=== PATIENT | female | born 1935 | race Caucasian/White ===

== ENCOUNTER → 2016-02-25 | Outpatient (CLI) | payer MEDICARE ==
[~2016-02-25] MED LIST: AMIO200T PO; ATOR80TA PO; COUM3TAB PO; COUM6TAB PO; DILA100C PO; LANS15CA PO; LEVE500 PO; LEXA10TA PO; LISI10TA PO; MIRTA15 PO; XANA0.5T PO
[2016-02-25 16:46] LABS: HEMATOCRIT 39.4 % (35.0-46.0); MEAN CELL VOLUME 86.5 FL (80.0-100.0); MEAN CORPUSCULAR HEMOGLOBIN 28.7 PG (27.0-34.0); MEAN CORPUSCULAR HGB CONC 33.2 % (32.0-36.0); PLATELET COUNT 228 TH/MM3 (150-450); RED BLOOD COUNT 4.56 MIL/MM3 (4.00-5.30); RED CELL DISTRIBUTION WIDTH 13.9 % (11.6-17.2); REVIEW FLAG FINAL; WHITE BLOOD COUNT 7.2 TH/MM3 (4.0-11.0)
[2016-02-25 16:47] LABS: ALT (GPT) 58 U/L (10-53); ANION GAP 7 MEQ/L (5-15); AST (GOT) 43 U/L (15-37); BICARBONATE 29.8 MEQ/L (21.0-32.0); BLOOD UREA NITROGEN 24 MG/DL (7-18); CHLORIDE 104 MEQ/L (98-107); GLOMERULAR FILTRATION RATE 62 ML/MIN (>89); GLUCOSE,FASTING 67 MG/DL (74-99); POTASSIUM 3.9 MEQ/L (3.5-5.1); SODIUM (NA) 141 MEQ/L (136-145)
[2016-02-25 16:55] LABS: ALKALINE PHOSPHATASE 132 U/L (45-117); HDL CHOLESTEROL 71.1 MG/DL (40.0-60.0); LDL CHOLESTEROL 90 MG/DL (0-99); LDL CHOLESTEROL DIRECT 98 MG/DL (0-99); TOTAL BILIRUBIN ADULT 0.2 MG/DL (0.2-1.0)
== END ==
LOC: PLAB 12:30
PROVIDERS: ATTEND Internal Medicine
DX: I10 Essential (primary) hypertension (principal); E78.5 Hyperlipidemia, unspecified
CPT/HCPCS: 36415; 80053; 80061; 83721; 85027

== ENCOUNTER → 2016-03-26 | Outpatient (CLI) | payer MEDICARE | LOC: PLAB 12:24 | PROVIDERS: ATTEND Psychiatry & Neurology Neurology | DX: G40.901 Epilepsy, unspecified, not intractable, with status epilepticus (principal) | CPT/HCPCS: 36415; 80177; 80185 ==

== ENCOUNTER → 2016-05-26 | Outpatient (CLI) | payer MEDICARE ==
[2016-05-26 17:19] LABS: HEMATOCRIT 37.5 % (35.0-46.0); MEAN CELL VOLUME 86.7 FL (80.0-100.0); MEAN CORPUSCULAR HEMOGLOBIN 29.9 PG (27.0-34.0); MEAN CORPUSCULAR HGB CONC 34.4 % (32.0-36.0); PLATELET COUNT 197 TH/MM3 (150-450); RED BLOOD COUNT 4.32 MIL/MM3 (4.00-5.30); RED CELL DISTRIBUTION WIDTH 13.9 % (11.6-17.2); REVIEW FLAG FINAL; WHITE BLOOD COUNT 7.8 TH/MM3 (4.0-11.0)
[2016-05-26 17:27] LABS: ANION GAP 5 MEQ/L (5-15); AST (GOT) 39 U/L (15-37); BICARBONATE 27.6 MEQ/L (21.0-32.0); BLOOD UREA NITROGEN 24 MG/DL (7-18); CHLORIDE 109 MEQ/L (98-107); GLOMERULAR FILTRATION RATE 59 ML/MIN (>89); GLUCOSE,FASTING 96 MG/DL (74-99); POTASSIUM 4.1 MEQ/L (3.5-5.1); SODIUM (NA) 142 MEQ/L (136-145)
[2016-05-26 17:29] LABS: ALKALINE PHOSPHATASE 130 U/L (45-117); ALT (GPT) 56 U/L (10-53); HDL CHOLESTEROL 60.8 MG/DL (40.0-60.0); LDL CHOLESTEROL DIRECT 83 MG/DL (0-99); TOTAL BILIRUBIN ADULT 0.2 MG/DL (0.2-1.0)
[2016-05-26 17:39] LABS: LDL CHOLESTEROL 69 MG/DL (0-99)
== END ==
LOC: PLAB 15:17
PROVIDERS: ATTEND Psychiatry & Neurology Neurology
DX: G40.901 Epilepsy, unspecified, not intractable, with status epilepticus (principal); I10 Essential (primary) hypertension; E78.5 Hyperlipidemia, unspecified
CPT/HCPCS: 36415; 80053; 80061; 80177; 80185; 83721; 85027

== ENCOUNTER → 2016-08-27 | Outpatient (CLI) | payer MEDICARE | LOC: PLAB 11:18 | PROVIDERS: ATTEND Psychiatry & Neurology Neurology | DX: G40.901 Epilepsy, unspecified, not intractable, with status epilepticus (principal) | CPT/HCPCS: 36415; 80177; 80185 ==

== ENCOUNTER 2016-10-26 11:36 | Emergency (ER) | payer MEDICARE ==
[~2016-10-26] VITALS: Ht 167.6 cm; Wt 56.6 kg
[2016-10-26 11:41] VITALS: BP 149/63; PULSE 75; RESP 15; TEMP 97.9; O2SAT 94
[2016-10-26] MEDS ORDERED: ACETAMINOPHEN 500 MG CPLT PO ONE (12:00)
[2016-10-26] MEDS ORDERED: LIDOCAINE HCL 1% 50 ML VIAL INFIL ONE (12:00)
[2016-10-26] MEDS ORDERED: TETANUS/DIPHTHERIA TOXOID ADULT 0.5 ML VIAL IM ONE (12:00)
--- NOTE | 2016-10-26 12:13 | PD ---
HPI Chief Complaint: Fall Time Seen by Provider: 11:45 Travel History International Travel<30 days: No Contact w/Intl Traveler<30days: No Traveled to known affect area: No History of Present Illness HPI 81yo F with PMH of CVA with left sided weakness presents to the ED with c/o laceration in left forehead after fall today at about 5:30am. Pt was in her wheelchair and tried to get up but her foot got tangled in the wheelchair and she fell and hit the left side of her head on the edge of the bathtub. Pt also hit her left knee. Denies any LOC, dizziness, chest pain, sob, n/v, abdominal pain, new weakness or numbness, visual changes. Pt was able to crawl back up onto the wheelchair. She is on coumadin for her CVA. PFSH Past Medical History Arthritis: No Asthma: No Anxiety: Yes Depression: Yes Heart Rhythm Problems: Yes (SVT) Cancer: No Cardiovascular Problems: Yes High Cholesterol: Yes Chemotherapy: No Chest Pain: No Congestive Heart Failure: No COPD: No Cerebrovascular Accident: Yes (X 2 w left sided deficit) Diabetes: No Diminished Hearing: No Endocrine: No GERD: No Genitourinary: No Hiatal Hernia: No Hypertension: Yes Musculoskeletal: No Neurologic: Yes Psychiatric: No Reproductive: No Respiratory: No Migraines: No Radiation Therapy: No Seizures: Yes Sickle Cell Disease: No Sleep Apnea: No Thyroid Disease: No Ulcer: No Past Surgical History AICD: No Appendectomy: Yes Arteriovenous Shunt: No Cardiac Surgery: No Ear Surgery: No Endocrine Surgery: No Eye Surgery: No Genitourinary Surgery: No Gynecologic Surgery: No Insulin Pump: No Joint Replacement: No Oral Surgery: Yes Pacemaker: No Thoracic Surgery: No Tonsillectomy: Yes Social History Alcohol Use: No Tobacco Use: No Substance Use: No Allergies-Medications (Allergen,Severity, Reaction): Coded Allergies: *MDRO Multi-Drug Resistant Organism (Verified Allergy, Unknown, 10/26/16) +c-dif Reported Meds & Prescriptions Reported Meds & Active Scripts Active Reported Warfarin 3 Mg Tab 3 Mg PO 3X WEEK Warfarin 6 Mg Tab 6 Mg PO 4 DAYS WEEK Keppra (Levetiracetam) 500 Mg Tab 500 Mg PO BID Dilantin (Phenytoin Extended) 100 Mg Cap 100 Mg PO BID Amiodarone (Amiodarone HCl) 100 Mg Tab 100 Mg PO DAILY Escitalopram (Escitalopram Oxalate) 20 Mg Tab 20 Mg PO DAILY Lisinopril-Hctz 10-12.5 Mg Tab 0.5 Tab PO DAILY Pantoprazole (Pantoprazole Sodium) 40 Mg Tab 40 Mg PO DAILY Review of Systems Except as stated in HPI: all other systems reviewed are Neg Physical Exam Narrative GENERAL: 81yo F not in distress. SKIN: Focused skin assessment warm/dry. HEAD: +1.5cm laceration left forehead. Periorbital ecchymoses in left eye. EYES: Pupils equal and round at 3mm bilaterally. EOMI. No injection or drainage. ENT: No hemotympanum. No septal hematoma. NECK: No midline ttp cervical spine. FROM in cervical spine. CARDIOVASCULAR: Regular rate and rhythm. No murmur appreciated. RESPIRATORY: No accessory muscle use. Clear to auscultation. Breath sounds equal bilaterally. GASTROINTESTINAL: Abdomen soft, non-tender, nondistended. No rebound tenderness or guarding. MUSCULOSKELETAL: Left knee: +Abrasion and mild ecchymoses. FROM left knee. Sensation intact. Distal pulses intact. NEUROLOGICAL: Awake and alert. Left facial droop, not new. Muscle strength 4/ 5 in LLE that is not new. Normal speech. PSYCHIATRIC: Appropriate mood and affect; insight and judgment normal. Data Data Last Documented VS Vital Signs Date Time Temp Pulse Resp B/P (MAP) Pulse Ox O2 Delivery O2 Flow Rate FiO2 10/26/16 12:43 72 18 119/66 (83) 95 Room Air 10/26/16 11:41 97.9 Orders Orders Complete Blood Count With Diff (10/26/16 11:51) Basic Metabolic Panel (Bmp) (10/26/16 11:51) Prothrombin Time / Inr (Pt) (10/26/16 11:51) Act Partial Throm Time (Ptt) (10/26/16 11:51) Ct Brain W/O Iv Contrast(Rout) (10/26/16 ) Tetanus/Diphtheria Tox Adult (Tetanus/Di (10/26/16 12:00) Lidocaine 1% Inj (50 Ml) (Xylocaine 1% I (10/26/16 12:00) Acetaminophen (Tylenol) (10/26/16 12:00) Ct Facial Bones W/O Iv Cont (10/26/16 ) Labs Laboratory Tests Test 10/26/16 12:30 White Blood Count 8.1 TH/MM3 Red Blood Count 4.64 MIL/MM3 Hemoglobin 13.9 GM/DL Hematocrit 41.1 % Mean Corpuscular Volume 88.6 FL Mean Corpuscular Hemoglobin 29.9 PG Mean Corpuscular Hemoglobin Concent 33.7 % Red Cell Distribution Width 12.6 % Platelet Count 212 TH/MM3 Mean Platelet Volume 8.2 FL Neutrophils (%) (Auto) 72.0 % Lymphocytes (%) (Auto) 12.9 % Monocytes (%) (Auto) 13.5 % Eosinophils (%) (Auto) 1.1 % Basophils (%) (Auto) 0.5 % Neutrophils # (Auto) 5.9 TH/MM3 Lymphocytes # (Auto) 1.0 TH/MM3 Monocytes # (Auto) 1.1 TH/MM3 Eosinophils # (Auto) 0.1 TH/MM3 Basophils # (Auto) 0.0 TH/MM3 CBC Comment DIFF FINAL Differential Comment Prothrombin Time 27.7 SEC Prothromb Time International Ratio 2.4 RATIO Activated Partial Thromboplast Time 37.3 SEC Blood Urea Nitrogen 18 MG/DL Creatinine 0.86 MG/DL Random Glucose 108 MG/DL Calcium Level 9.0 MG/DL Sodium Level 140 MEQ/L Potassium Level 3.8 MEQ/L Chloride Level 104 MEQ/L Carbon Dioxide Level 31.0 MEQ/L Anion Gap 5 MEQ/L Estimat Glomerular Filtration Rate 63 ML/MIN MDM Medical Decision Making Medical Screen Exam Complete: Yes Emergency Medical Condition: Yes Interpretation(s) Laboratory Tests Test 10/26/16 12:30 White Blood Count 8.1 TH/MM3 (4.0-11.0) Red Blood Count 4.64 MIL/MM3 (4.00-5.30) Hemoglobin 13.9 GM/DL (11.6-15.3) Hematocrit 41.1 % (35.0-46.0) Mean Corpuscular Volume 88.6 FL (80.0-100.0) Mean Corpuscular Hemoglobin 29.9 PG (27.0-34.0) Mean Corpuscular Hemoglobin Concent 33.7 % (32.0-36.0) Red Cell Distribution Width 12.6 % (11.6-17.2) Platelet Count 212 TH/MM3 (150-450) Mean Platelet Volume 8.2 FL (7.0-11.0) Neutrophils (%) (Auto) 72.0 % (16.0-70.0) Lymphocytes (%) (Auto) 12.9 % (9.0-44.0) Monocytes (%) (Auto) 13.5 % (0.0-8.0) Eosinophils (%) (Auto) 1.1 % (0.0-4.0) Basophils (%) (Auto) 0.5 % (0.0-2.0) Neutrophils # (Auto) 5.9 TH/MM3 (1.8-7.7) Lymphocytes # (Auto) 1.0 TH/MM3 (1.0-4.8) Monocytes # (Auto) 1.1 TH/MM3 (0-0.9) Eosinophils # (Auto) 0.1 TH/MM3 (0-0.4) Basophils # (Auto) 0.0 TH/MM3 (0-0.2) CBC Comment DIFF FINAL Differential Comment Prothrombin Time 27.7 SEC (9.8-11.6) Prothromb Time International Ratio 2.4 RATIO Activated Partial Thromboplast Time 37.3 SEC (24.3-30.1) Blood Urea Nitrogen 18 MG/DL (7-18) Creatinine 0.86 MG/DL (0.50-1.00) Random Glucose 108 MG/DL (74-106) Calcium Level 9.0 MG/DL (8.5-10.1) Sodium Level 140 MEQ/L (136-145) Potassium Level 3.8 MEQ/L (3.5-5.1) Chloride Level 104 MEQ/L (98-107) Carbon Dioxide Level 31.0 MEQ/L (21.0-32.0) Anion Gap 5 MEQ/L (5-15) Estimat Glomerular Filtration Rate 63 ML/MIN (>89) Last Impressions Maxillofacial CT 10/26/16 0000 Signed Impressions: Service Date/Time: Wednesday, October 26, 2016 12:19 - CONCLUSION: Negative for fracture, moderate maxillary sinus disease. Juan Alberto Garcia MD FACR Head CT 10/26/16 0000 Signed Impressions: Service Date/Time: Wednesday, October 26, 2016 12:19 - CONCLUSION: Negative for acute process, Juan Alberto Garcia MD FACR Differential Diagnosis ICH vs. skull fracture vs. contusion Narrative Course 81yo F with laceration above left eyebrow s/p mechanical fall today. Labs reviewed, no leukocytosis. BMP unremarkable. INR therapeutic at 2.4. CT brain negative. CT maxillofacial showed no facture. Pt refused xray left knee. Pt given acetaminophen and tetanus. Pt has been observed in the ED and has no symptoms. Pt fell at around 5:30am this morning so it has been almost 9 hours. Laceration repaired. Return precautions given. Procedures Procedure Narrative LACERATION LOCATION: Above left eyebrow LENGTH: 3cm NUMBER OF STITCHES/YOANDY: 7 REPAIR: The area of the laceration was sterilely draped. The laceration was infiltrated with 3cc of 1% lidocaine. The wound was copiously irrigated and explored without evidence of foreign body, tendon injury or neurovascular injury. The wound was closed using 6-0 nylon. This was a single layer repair. A sterile dressing was applied. The patient was advised to keep the dressing clean and dry. Patient tolerated the procedure well. Diagnosis Primary Impression: Head trauma Qualified Codes: S09.90XA - Unspecified injury of head, initial encounter Patient Instructions: General Instructions Departure Forms: Tests/Procedures Additional Instructions: Please follow up with your primary care physician or emergency department in 5 days for suture removal. Return to the ED if symptoms worsen. Med/Other Pt SpecificInfo: Prescription(s) given Scripts Acetaminophen (Tylenol) 325 Mg Tab 325 MG PO Q4H Y for PAIN SCALE 1 TO 4, #20 TAB 0 Refills Prov: Ana Walker DO 10/26/16 Disposition: 01 DISCHARGE HOME Condition: Stable Ana Walker DO Oct 26, 2016 12:01
[2016-10-26] MEDS ORDERED: DILA100C PO (12:15)
[2016-10-26] MEDS ORDERED: WARF-60 PO (12:15)
[2016-10-26] MEDS ORDERED: PANT40TA3 PO (12:15)
[2016-10-26] MEDS ORDERED: LEVE500 PO (12:15)
[2016-10-26] MEDS ORDERED: WARF-58 PO (12:15)
[2016-10-26] MEDS ORDERED: LISI10TA PO (12:15)
[2016-10-26] MEDS ORDERED: ESCI20TA PO (12:15)
[2016-10-26] MEDS ORDERED: AMIO0.1T PO (12:15)
--- NOTE | 2016-10-26 12:36 | RADRPT ---
EXAM DATE/TIME: 10/26/2016 12:19 [facility] COMPARISON: CT BRAIN W/O CONTRAST, May 18, 2013, 10:06. INDICATIONS : Fall. Hit left facial and head area. RADIATION DOSE: 59.18 CTDIvol (mGy) MEDICAL HISTORY : Cerebrovascular disease. Seizures. Hypertension.Anticoagulant therapy. SURGICAL HISTORY : Tonsillectomy. ENCOUNTER: Initial ACUITY: 1 day PAIN SCALE: 4/10 LOCATION: Left cranial TECHNIQUE: Multiple contiguous axial images were obtained of the head. Using automated exposure control and adj ustment of the mA and/or kV according to patient size, radiation dose was kept as low as reasonably a chievable to obtain optimal diagnostic quality images. DICOM format image data is available electro nically for review and comparison. FINDINGS: CEREBRUM: Old infarct is seen in the right sylvian region. The left hemisphere is unremarkable. POSTERIOR FOSSA: The cerebellum and brainstem are intact. The 4th ventricle is midline. The cerebellopontine angle i s unremarkable. EXTRACRANIAL: The visualized portion of the orbits is intact. SKULL: Moderate sinus disease is present right maxillary sinus. CONCLUSION: Negative for acute process, Juan Alberto Garcia MD FACR on October 26, 2016 at 12:31 Board Certified Radiologist. This report was verified electronically.
--- NOTE | 2016-10-26 12:41 | RADRPT ---
EXAM DATE/TIME: 10/26/2016 12:19 [facility] COMPARISON: CT FACIAL BONES W/O CONTRAST, August 31, 2012, 1:26. INDICATIONS : Fall. Hit left facial and head area. RADIATION DOSE: 34.93 CTDIvol (mGy) MEDICAL HISTORY : Cerebrovascular disease. Seizures. Hypertension.Anticoagulant therapy. SURGICAL HISTORY : Tonsillectomy. ENCOUNTER: Initial ACUITY: 1 day PAIN SCORE: 4/10 LOCATION: Left facial TECHNIQUE: Volumetric scanning of the facial bones was performed. Using automated exposure control and adjustme nt of the mA and/or kV according to patient size, radiation dose was kept as low as reasonably achiev able to obtain optimal diagnostic quality images. DICOM format image data is available electronicall y for review and comparison. FINDINGS: ORBITS: The orbital and infraorbital osseous structures are intact. The retroconal structures have a normal configuration. No radiopaque foreign bodies are seen. NASAL BONE: The nasal bone and maxillary spine are intact ZYGOMATIC ARCHES: Symmetric without evidence of fracture. SINUSES: Moderate right maxillary sinus disease is evident. NASAL CAVITY: The nasal septum is intact and midline. The lacrimal ducts are intact. SOFT TISSUES: No radiopaque foreign bodies seen. No soft-tissue swelling is seen. INTRACRANIAL: No intracranial air seen. CRIBIFORM PLATE: Grossly intact. CONCLUSION: Negative for fracture, moderate maxillary sinus disease. Juan Alberto Garcia MD FACR on October 26, 2016 at 12:37 Board Certified Radiologist. This report was verified electronically.
[2016-10-26 12:43] VITALS: BP 119/66; PULSE 72; RESP 18; O2SAT 95
[2016-10-26 12:50] LABS: AUTOMATED NEUTROPHIL # 5.9 TH/MM3 (1.8-7.7); BASOPHIL % 0.5 % (0.0-2.0); EOSINOPHIL # 0.1 TH/MM3 (0-0.4); EOSINOPHIL % 1.1 % (0.0-4.0); HEMATOCRIT 41.1 % (35.0-46.0); HEMO FLAGS DIFF FINAL; LYMPH % 12.9 % (9.0-44.0); MEAN CELL VOLUME 88.6 FL (80.0-100.0); MEAN CORPUSCULAR HEMOGLOBIN 29.9 PG (27.0-34.0); MEAN CORPUSCULAR HGB CONC 33.7 % (32.0-36.0); MONO % 13.5 % (0.0-8.0); PLATELET COUNT 212 TH/MM3 (150-450); RED BLOOD COUNT 4.64 MIL/MM3 (4.00-5.30); RED CELL DISTRIBUTION WIDTH 12.6 % (11.6-17.2); WHITE BLOOD COUNT 8.1 TH/MM3 (4.0-11.0)
[2016-10-26 12:58] LABS: POTASSIUM 3.8 MEQ/L (3.5-5.1)
[2016-10-26 13:03] LABS: APTT (PATIENT) 37.3 SEC (24.3-30.1); INTERNATIONAL NORMALIZED RATIO 2.4 RATIO; PROTHROMBIN TIME - PATIENT 27.7 SEC (9.8-11.6)
[2016-10-26] MEDS ORDERED: TYLE325T PO (13:51)
[2016-10-26 14:18] VITALS: BP 142/78
== END 2016-10-26 14:19 | disposition home or self-care (01) ==
LOC: PHED 11:36
DX: S01.81XA Laceration without foreign body of other part of head, initial encounter (principal); Z79.01 Long term (current) use of anticoagulants; I69.354 Hemiplegia and hemiparesis following cerebral infarction affecting left non-dominant side; E78.00 Pure hypercholesterolemia, unspecified; I10 Essential (primary) hypertension; Z23 Encounter for immunization; W05.0XXA Fall from non-moving wheelchair, initial encounter; Y93.E8 Activity, other personal hygiene; Y99.8 Other external cause status
CPT/HCPCS: 12013; 70450; 70486; 80048; 85025; 85610; 85730; 90471; 90714

== ENCOUNTER 2016-10-31 10:48 | Emergency (ER) | payer MEDICARE ==
[~2016-10-31 10:48] MED LIST changes: +AMIO0.1T PO; -AMIO200T PO; -ATOR80TA PO; -COUM3TAB PO; -COUM6TAB PO; +ESCI20TA PO; -LANS15CA PO; -LEXA10TA PO; -MIRTA15 PO; +PANT40TA3 PO; +TYLE325T PO; +WARF-58 PO; +WARF-60 PO; -XANA0.5T PO
[2016-10-31 10:56] VITALS: BP 108/54; PULSE 83; RESP 20; TEMP 97.7
--- NOTE | 2016-10-31 11:30 | PD ---
HPI Chief Complaint: Wound/Suture/Staple Re-Check Time Seen by Provider: 11:31 Travel History International Travel<30 days: No Contact w/Intl Traveler<30days: No Traveled to known affect area: No History of Present Illness HPI 81-year-old female since emergency department to have sutures removed from the left eyebrow. Patient sustained a laceration to the face when she fell approximately week ago. She denies headache, visual changes, pain or drainage from the site. She has no medical complaint. PFSH Past Medical History Hx Anticoagulant Therapy: Yes (COUMADIN) Arthritis: No Asthma: No Anxiety: Yes Depression: Yes Heart Rhythm Problems: Yes (SVT) Cancer: No Cardiovascular Problems: Yes High Cholesterol: Yes Chemotherapy: No Chest Pain: No Congestive Heart Failure: No COPD: No Cerebrovascular Accident: Yes (X 2 w left sided deficit) Diabetes: No Diminished Hearing: No Endocrine: No GERD: No Genitourinary: No Hiatal Hernia: No Hypertension: Yes Musculoskeletal: No Neurologic: Yes Psychiatric: No Reproductive: No Respiratory: No Migraines: No Radiation Therapy: No Seizures: Yes Sickle Cell Disease: No Sleep Apnea: No Thyroid Disease: No Ulcer: No ?: Not Menopausal: Yes Past Surgical History AICD: No Appendectomy: Yes Arteriovenous Shunt: No Cardiac Surgery: No Ear Surgery: No Endocrine Surgery: No Eye Surgery: No Genitourinary Surgery: No Gynecologic Surgery: No Insulin Pump: No Joint Replacement: No Oral Surgery: Yes Pacemaker: No Thoracic Surgery: No Tonsillectomy: Yes Social History Alcohol Use: No Tobacco Use: No Substance Use: No Allergies-Medications (Allergen,Severity, Reaction): Coded Allergies: *MDRO Multi-Drug Resistant Organism (Verified Allergy, Unknown, 10/26/16) +c-dif Reported Meds & Prescriptions Reported Meds & Active Scripts Active Tylenol (Acetaminophen) 325 Mg Tab 325 Mg PO Q4H PRN Reported Warfarin 3 Mg Tab 3 Mg PO 3X WEEK Warfarin 6 Mg Tab 6 Mg PO 4 DAYS WEEK Keppra (Levetiracetam) 500 Mg Tab 500 Mg PO BID Dilantin (Phenytoin Extended) 100 Mg Cap 100 Mg PO BID Amiodarone (Amiodarone HCl) 100 Mg Tab 100 Mg PO DAILY Escitalopram (Escitalopram Oxalate) 20 Mg Tab 20 Mg PO DAILY Lisinopril-Hctz 10-12.5 Mg Tab 0.5 Tab PO DAILY Pantoprazole (Pantoprazole Sodium) 40 Mg Tab 40 Mg PO DAILY Review of Systems Except as stated in HPI: all other systems reviewed are Neg Physical Exam Narrative GENERAL: Well-nourished, well-developed patient. SKIN: Focused skin assessment warm/dry. Healing wound to the left eyebrow with sutures in place. No drainage and surrounding erythema. No sign of infection. HEAD: Normocephalic. EYES: No scleral icterus. No injection or drainage. NECK: Supple, trachea midline. No JVD or lymphadenopathy. CARDIOVASCULAR: Regular rate and rhythm without murmurs, gallops, or rubs. RESPIRATORY: Breath sounds equal bilaterally. No accessory muscle use. Data Data Last Documented VS Vital Signs Date Time Temp Pulse Resp B/P (MAP) Pulse Ox O2 Delivery O2 Flow Rate FiO2 10/31/16 10:56 97.7 83 20 108/54 (72) MDM Medical Decision Making Medical Screen Exam Complete: Yes Emergency Medical Condition: Yes Differential Diagnosis Suture removal, wound recheck, facial laceration Narrative Course 81-year-old female since emergency department to have sutures removed from the left eyebrow. Patient sustained a laceration to the face when she fell approximately week ago. She denies headache, visual changes, pain or drainage from the site. Sutures were removed from the laceration. Wound edges well approximated. Wound is reinforced with Steri-Strips given the location on the face. Patient advised to follow-up with her primary care doctor. Patient verbalizes understanding agrees to plan Procedures Procedure Narrative Sutures removed from left eyebrow laceration. Patient tolerated procedure well. Wound edges well approximated. Two Steri-Strips placed to the left eyebrow after suture removal. Diagnosis Primary Impression: Visit for suture removal Referrals: Primary Care Physician Additional Instructions: The Steri-Strips will fall off on their own. You can trim the edges but do not pull off the strips. Return to emergency department or follow-up with her primary care doctor the developed new or worsening symptoms. Disposition: 01 DISCHARGE HOME Condition: Stable [facility] STACY Oct 31, 2016 11:30
== END 2016-10-31 11:49 | disposition home or self-care (01) ==
LOC: PHEFT 10:48
DX: S01.112D Laceration without foreign body of left eyelid and periocular area, subsequent encounter (principal); W19.XXXD Unspecified fall, subsequent encounter; Z48.02 Encounter for removal of sutures
CPT/HCPCS: 99281

== ENCOUNTER → 2017-02-12 | Outpatient (CLI) | payer MEDICARE ==
[2017-02-12 13:34] LABS: HEMATOCRIT 41.6 % (35.0-46.0); HEMOGLOBIN 14.3 GM/DL (11.6-15.3); MEAN CELL VOLUME 91.3 FL (80.0-100.0); MEAN CORPUSCULAR HEMOGLOBIN 31.3 PG (27.0-34.0); MEAN CORPUSCULAR HGB CONC 34.3 % (32.0-36.0); MEAN PLATELET VOLUME 8.2 FL (7.0-11.0); PLATELET COUNT 239 TH/MM3 (150-450); RED BLOOD COUNT 4.55 MIL/MM3 (4.00-5.30); WHITE BLOOD COUNT 7.3 TH/MM3 (4.0-11.0)
[2017-02-12 13:51] LABS: ALBUMIN 3.7 GM/DL (3.4-5.0); AST (GOT) 50 U/L (15-37); BICARBONATE 27.7 MEQ/L (21.0-32.0); BLOOD UREA NITROGEN 22 MG/DL (7-18); CALCIUM 8.9 MG/DL (8.5-10.1); CHLORIDE 105 MEQ/L (98-107); GLOMERULAR FILTRATION RATE 60 ML/MIN (>89); GLUCOSE,FASTING 85 MG/DL (74-99); SODIUM (NA) 140 MEQ/L (136-145)
[2017-02-12 13:52] LABS: ALT (GPT) 64 U/L (10-53); CHOLESTEROL 189 MG/DL (120-200)
[2017-02-12 13:54] LABS: ALKALINE PHOSPHATASE 141 U/L (45-117); CHOLESTEROL/ HDL RATIO 2.85 RATIO; HDL CHOLESTEROL 66.3 MG/DL (40.0-60.0); LDL CHOLESTEROL 96 MG/DL (0-99); LDL CHOLESTEROL DIRECT 102 MG/DL (0-99); TOTAL BILIRUBIN ADULT 0.5 MG/DL (0.2-1.0); TOTAL PROTEIN 7.6 GM/DL (6.4-8.2); TRIGLYCERIDES 136 MG/DL (42-150)
== END ==
LOC: PLAB 11:07
PROVIDERS: ATTEND Psychiatry & Neurology Neurology
DX: I10 Essential (primary) hypertension (principal); G40.901 Epilepsy, unspecified, not intractable, with status epilepticus
CPT/HCPCS: 36415; 80053; 80061; 80177; 80185; 83721; 85027

== ENCOUNTER 2017-05-28 13:32 | Observation (INO) | payer MEDICARE ==
[~2017-05-28] VITALS: Ht 167.6 cm; Wt 56.5 kg
[2017-05-28 13:35] VITALS: BP 141/63; PULSE 78; RESP 18; TEMP 98.8; O2SAT 94
--- NOTE | 2017-05-28 13:57 | PD ---
HPI Chief Complaint: Fall Time Seen by Provider: 13:40 Travel History International Travel<30 days: No Contact w/Intl Traveler<30days: No Traveled to known affect area: No History of Present Illness HPI 82-year-old female came to the emergency room with history of a fall almost a week ago where she fell forwards and hit her chest on a couch. Her daughter who is here in giving the history says nothing much was made of it at that time. But as time progressed she started complaining more and more of right- sided chest pain with difficulty breathing. Today the pain and the difficulty breathing was the most. The daughter took her to an urgent care where after an x-ray for rib series and chest x-ray being done she was diagnosed with pneumothorax on the right side as per the radiologist about 10-15%. She was sent to the emergency room. Patient appears to be in moderate distress. She is on Coumadin. PFSH Past Medical History Narrative Medical List of her past medical, surgical, social and family history reviewed from the nursing note. Hx Anticoagulant Therapy: Yes (WARFARIN) Arthritis: No Asthma: No Anxiety: Yes Depression: Yes Heart Rhythm Problems: Yes (SVT) Cancer: No Cardiovascular Problems: Yes (HTN, SVT, A. FIB) High Cholesterol: Yes Chemotherapy: No Chest Pain: No Congestive Heart Failure: No COPD: No Cerebrovascular Accident: Yes (CVA) Diabetes: No Diminished Hearing: No Endocrine: No GERD: No Genitourinary: No Hiatal Hernia: No Hypertension: Yes Musculoskeletal: No Neurologic: Yes Psychiatric: No Reproductive: No Respiratory: No Migraines: No Radiation Therapy: No Seizures: Yes Sickle Cell Disease: No Sleep Apnea: No Thyroid Disease: No Ulcer: No ?: Not Menopausal: Yes Past Surgical History AICD: No Appendectomy: Yes Arteriovenous Shunt: No Cardiac Surgery: No Ear Surgery: No Endocrine Surgery: No Eye Surgery: No Genitourinary Surgery: No Gynecologic Surgery: No Insulin Pump: No Joint Replacement: No Oral Surgery: Yes Pacemaker: No Thoracic Surgery: No Tonsillectomy: Yes Social History Alcohol Use: No Tobacco Use: No Substance Use: No Allergies-Medications (Allergen,Severity, Reaction): Coded Allergies: *MDRO Multi-Drug Resistant Organism (Verified Allergy, Unknown, 05/28/17) +c-dif Comments List of her allergies reviewed from the nursing note. Reported Meds & Prescriptions Reported Meds & Active Scripts Active Tylenol (Acetaminophen) 325 Mg Tab 325 Mg PO Q4H PRN Reported Alprazolam 0.5 Mg Tab 0.5 Mg PO Q4H PRN Mirtazapine 15 Mg Tab 15 Mg PO HS Atorvastatin (Atorvastatin Calcium) 20 Mg Tab 20 Mg PO HS Warfarin 3 Mg Tab 3 Mg PO TUFRSU Warfarin 6 Mg Tab 6 Mg PO MOWETHSA Keppra (Levetiracetam) 500 Mg Tab 500 Mg PO BID Dilantin (Phenytoin Extended) 100 Mg Cap 100 Mg PO BID Amiodarone (Amiodarone HCl) 100 Mg Tab 100 Mg PO DAILY Escitalopram (Escitalopram Oxalate) 20 Mg Tab 20 Mg PO DAILY Lisinopril-Hctz 10-12.5 Mg Tab 0.5 Tab PO DAILY Pantoprazole (Pantoprazole Sodium) 40 Mg Tab 40 Mg PO DAILY Narrative Medication List of her home medications reviewed from the nursing note. Review of Systems Except as stated in HPI: all other systems reviewed are Neg Cardiovascular: Positive: Chest Pain or Discomfort Respiratory: Positive: Shortness of Breath Physical Exam Narrative GENERAL: Awake, alert, elderly, moderate to significant distress SKIN: Focused skin assessment warm/dry. HEAD: Atraumatic. Normocephalic. EYES: Pupils equal and round. No scleral icterus. No injection or drainage. ENT: No nasal bleeding or discharge. Mucous membranes pink and moist. NECK: Trachea midline. No JVD. CARDIOVASCULAR: Regular rate and rhythm. No murmur appreciated. RESPIRATORY: Tachypnea, shallow respirations, tender on the right rib. Clear to auscultation. Breath sounds equal bilaterally. GASTROINTESTINAL: Abdomen soft, non-tender, nondistended. Hepatic and splenic margins not palpable. MUSCULOSKELETAL: No obvious deformities. No clubbing. No cyanosis. No edema. NEUROLOGICAL: Awake and alert. No obvious cranial nerve deficits. Motor grossly within normal limits. Normal speech. PSYCHIATRIC: Appropriate mood and affect; insight and judgment normal. Data Data Last Documented VS Vital Signs Date Time Temp Pulse Resp B/P (MAP) Pulse Ox O2 Delivery O2 Flow Rate FiO2 05/28/17 14:05 79 18 94 05/28/17 13:35 98.8 141/63 (89) Orders Orders Ct Thorax/ Chest Wo Iv Contras (4/20/18 ) Ct Abd/Pel W/O Iv Contrast (05/28/17 ) Complete Blood Count With Diff (05/28/17 13:48) Basic Metabolic Panel (Bmp) (05/28/17 13:48) Prothrombin Time / Inr (Pt) (05/28/17 13:48) Sodium Chlorid 0.9% 500 Ml Inj (Ns 500 M (05/28/17 14:00) Lead Mason Tender / Telemetry IRIS.Q8H (05/28/17 13:48) Morphine Inj (Morphine Inj) (05/28/17 14:00) Ondansetron Inj (Zofran Inj) (05/28/17 14:00) Admit Order (Ed Use Only) (05/28/17 14:42) Labs Laboratory Tests Test 05/28/17 14:10 White Blood Count 8.2 TH/MM3 Red Blood Count 4.45 MIL/MM3 Hemoglobin 13.2 GM/DL Hematocrit 40.7 % Mean Corpuscular Volume 91.5 FL Mean Corpuscular Hemoglobin 29.7 PG Mean Corpuscular Hemoglobin Concent 32.5 % Red Cell Distribution Width 12.5 % Platelet Count 215 TH/MM3 Mean Platelet Volume 8.1 FL Neutrophils (%) (Auto) 73.5 % Lymphocytes (%) (Auto) 11.0 % Monocytes (%) (Auto) 8.9 % Eosinophils (%) (Auto) 5.8 % Basophils (%) (Auto) 0.8 % Neutrophils # (Auto) 6.0 TH/MM3 Lymphocytes # (Auto) 0.9 TH/MM3 Monocytes # (Auto) 0.7 TH/MM3 Eosinophils # (Auto) 0.5 TH/MM3 Basophils # (Auto) 0.1 TH/MM3 CBC Comment DIFF FINAL Differential Comment Prothrombin Time 26.7 SEC Prothromb Time International Ratio 2.6 RATIO Blood Urea Nitrogen 21 MG/DL Creatinine 0.83 MG/DL Random Glucose 129 MG/DL Calcium Level 9.1 MG/DL Sodium Level 141 MEQ/L Potassium Level 4.0 MEQ/L Chloride Level 105 MEQ/L Carbon Dioxide Level 29.9 MEQ/L Anion Gap 6 MEQ/L Estimat Glomerular Filtration Rate 66 ML/MIN Phenytoin (Dilantin) Level 12.6 MCG/ML MDM Medical Decision Making Medical Screen Exam Complete: Yes Emergency Medical Condition: Yes Medical Record Reviewed: Yes Differential Diagnosis Pneumothorax, liver laceration, rib fracture Narrative Course 1:[address] scan of her thorax and abdomen and pelvis has been ordered. Awaiting for blood test results to come back. If INR is within acceptable limits I will try to put a chest tube in myself. Otherwise it might have to be done by IR. 2:42 PM I discussed the CT with Dr. Diallo Garcia and as per him the CT abdomen pelvis did not show any free air. She has significant colonic distention for unknown reason. The pneumothorax is small. Patient's INR was 2.6. I discussed the case with thoracic surgeon Dr. Francis who wants the patient to be observed overnight and repeat chest x-ray tomorrow morning to see if the pneumothorax has expanded. As per him it is small and does not require a chest tube emergently. However he does want the patient to be transferred to the main hospital where she can be observed. I discussed this with the hospitalist and she will admit the patient to the [facility]. I discussed this with the patient and her daughter who understand the reason for admission and transfer. Critical Care Narrative Aggregate critical care time was 30 minutes. Time to perform other separately billable procedures was not included in the critical care time. My time did not include minutes spent treating any other patients simultaneously or on activities that did not directly contribute to the patient's treatment. The services I provided to this patient were to treat and/or prevent clinically significant deterioration that could result in: Traumatic pneumothorax I provided critical care services requiring my management, as noted below: Chart data review, documentation time, medication orders and management, vital sign assessments/reviewing monitor data, ordering and reviewing lab tests, ordering and interpreting/reviewing x-rays and diagnostic studies, care of the patient and discussion of the patient with the admitting physicians. Procedures EKG Prior to Arrival: No Physician Communication Physician Communication Dr. Padilla, Dr. Garcia Diagnosis Primary Impression: Traumatic pneumothorax Qualified Codes: S27.0XXA - Traumatic pneumothorax, initial encounter Additional Impressions: Blunt chest trauma Qualified Codes: S29.8XXA - Other specified injuries of thorax, initial encounter Respiratory distress Pleuritic chest pain Admitting Information Admitting Physician Requests: Db Bonilla MD May 28, 2017 13:56
[2017-05-28] MEDS ORDERED: ONDANSETRON HCL 4 MG/2 ML VIAL IV PUSH ONE (14:00)
[2017-05-28] MEDS ORDERED: SODIUM CHLORID 0.9% 500 ML INJ 500 ML IV ONE (14:00)
[2017-05-28] MEDS ORDERED: MORPHINE SULFATE 4 MG/ML INJ IV PUSH ONE (14:00)
[2017-05-28 14:20] LABS: BASOPHIL # 0.1 TH/MM3 (0-0.2); BASOPHIL % 0.8 % (0.0-2.0); EOSINOPHIL # 0.5 TH/MM3 (0-0.4); EOSINOPHIL % 5.8 % (0.0-4.0); HEMATOCRIT 40.7 % (35.0-46.0); HEMOGLOBIN 13.2 GM/DL (11.6-15.3); LYMPHOCYTE # 0.9 TH/MM3 (1.0-4.8); MEAN CELL VOLUME 91.5 FL (80.0-100.0); MEAN CORPUSCULAR HEMOGLOBIN 29.7 PG (27.0-34.0); MEAN CORPUSCULAR HGB CONC 32.5 % (32.0-36.0); MEAN PLATELET VOLUME 8.1 FL (7.0-11.0); MONO % 8.9 % (0.0-8.0); MONOCYTE # 0.7 TH/MM3 (0-0.9); NEUT % 73.5 % (16.0-70.0); PLATELET COUNT 215 TH/MM3 (150-450); RED BLOOD COUNT 4.45 MIL/MM3 (4.00-5.30); RED CELL DISTRIBUTION WIDTH 12.5 % (11.6-17.2); WHITE BLOOD COUNT 8.2 TH/MM3 (4.0-11.0)
--- NOTE | 2017-05-28 14:25 | RADRPT ---
EXAM DATE/TIME: 05/28/2017 13:50 [facility] COMPARISON: No previous studies available for comparison. INDICATIONS : Trauma. Fell 1 week ago. Right lower chest and upper abdominal pain. Evaluate for pneumothorax. RADIATION DOSE: 8.27 CTDIvol (mGy) ; Combined studies - Thorax/Abdomen/Pelvis MEDICAL HISTORY : Seizures. Cerebrovascular disease. Hypertension. SURGICAL HISTORY : Appendectomy. ENCOUNTER: Initial ACUITY: 1 week PAIN SCALE: 8/10 LOCATION: Right lower chest TECHNIQUE: Volumetric scanning of the chest was performed. Using automated exposure control and adjustment of t he mA and/or kV according to patient size, radiation dose was kept as low as reasonably achievable to obtain optimal diagnostic quality images. DICOM format image data is available electronically for r eview and comparison. Follow-up recommendations for detected pulmonary nodules are based at a minimum on nodule size and pa tient risk factors according to Fleischner Society Guidelines. FINDINGS: Small right pneumothorax with small right pleural effusion 1 cm nodule right lung base. Left lung is clear. There is no axillary adenopathy. There is no pericardial effusion. There is no mediastinal adenopathy. Review of bone windows reveals no displaced fractures pneumothorax. CONCLUSION: Small right pneumothorax or right pleural effusion. Juan Alberto Garcia MD FACR on May 28, 2017 at 14:21 Board Certified Radiologist. This report was verified electronically.
[2017-05-28] MEDS ORDERED: ATOR20TA15 PO (14:28)
[2017-05-28] MEDS ORDERED: MIRTA15 PO (14:28)
[2017-05-28] MEDS ORDERED: ALPR0.5T3 PO (14:28)
[2017-05-28 14:32] LABS: CALCIUM 9.1 MG/DL (8.5-10.1); INTERNATIONAL NORMALIZED RATIO 2.6 RATIO; PROTHROMBIN TIME - PATIENT 26.7 SEC (9.8-11.6)
--- NOTE | 2017-05-28 14:32 | RADRPT ---
EXAM DATE/TIME: 05/28/2017 13:50 [facility] COMPARISON: No previous studies available for comparison. INDICATIONS : Trauma. Fell 1 week ago. Right lower chest and upper abdominal pain. ORAL CONTRAST: No oral contrast ingested. RADIATION DOSE: 8.27 CTDIvol (mGy) ; Combined studies - Thorax/Abdomen/Pelvis MEDICAL HISTORY : Seizures. Cerebrovascular disease. Hypertension. SURGICAL HISTORY : Appendectomy. ENCOUNTER: Initial ACUITY: 1 week PAIN SCALE: 8/10 LOCATION: Right upper quadrant TECHNIQUE: Volumetric scanning of the abdomen and pelvis was performed. Using automated exposure control and ad justment of the mA and/or kV according to patient size, radiation dose was kept as low as reasonably achievable to obtain optimal diagnostic quality images. DICOM format image data is available electro nically for review and comparison. FINDINGS: Again seen is the small right pleural effusion and right pneumothorax. There is moderate amount of a ir in what I think is enlarged distended stomach and colon. I don't see anything to suggest this is the free intraperitoneal air. Air appears to be confined to bowel. The liver, spleen, pancreas and kidneys are unremarkable. There is hemangioma in the L1 and L3 vertebral bodies. There are extensive degenerative changes in t he lumbar spine. In spite of the small right pneumothorax I don't seen a fracture. Moderate stool is seen throughout the colon in the pelvis. Trace free fluid is noted. CONCLUSION: 1. Small right pneumothorax 2. Significant distention of the colon, etiology not apparent. There is no free air. Moderate vascu lar catheter changes are noted. 3. Hemangioma L1 and L3. 4. Trace free fluid in the pelvis. Juan Alberto Garcia MD FACR on May 28, 2017 at 14:23 Board Certified Radiologist. This report was verified electronically.
[2017-05-28 14:33] LABS: BICARBONATE 29.9 MEQ/L (21.0-32.0)
[2017-05-28 14:36] LABS: CREATININE 0.83 MG/DL (0.50-1.00)
[2017-05-28 15:26] VITALS: BP 146/74; PULSE 82; RESP 16; O2SAT 96
[2017-05-28] MEDS ORDERED: ACETAMINOPHEN 500 MG CPLT PO ONE (15:30)
[2017-05-28] MEDS ORDERED: SENNOSIDES 8.6 MG TAB PO PRN (15:30)
[2017-05-28] MEDS ORDERED: NALOXONE HCL 0.4 MG/ML AMP IV PUSH PRN (15:30)
[2017-05-28] MEDS ORDERED: SODIUM CHLORIDE 0.9% FLUSH 10 ML FLUSH IV FLUSH PRN (15:30)
[2017-05-28] MEDS ORDERED: ALPRAZolam 0.5 MG TAB PO PRN (16:15)
--- NOTE | 2017-05-28 16:18 | HHI.HP ---
[facility]ician Andrea Syed MD Admission Diagnosis Traumatic pneumothorax, colonic distention Diagnoses: Chief Complaint: Chest pain Travel History International Travel<30 Days: No Contact w/Intl Traveler <30 Da: No Traveled to Known Affected Are: No History of Present Illness Patient is a 82-year-old female with a history of seizures and history of stroke on Coumadin. She did have a fall at home about a week ago and noted that she had increased pain on the right side. She came to the emergency room and the pain did not subside. She is now known to have small pneumothorax with symptoms of chest pain. She is not short of breath. But she does have pain and this is improved with Tylenol. Review of Systems Constitutional: DENIES: Diaphoretic episodes, Fatigue, Fever, Weight gain, Weight loss, Chills, Dizziness, Change in appetite, Night Sweats Endocrine: DENIES: Abnorml menstrual pattern, Heat/cold intolerance, Polydipsia , Polyuria, Polyphagia Eyes: DENIES: Blurred vision, Diplopia, Eye inflammation, Eye pain, Vision loss , Photosensitivity, Double Vision Ears, nose, mouth, throat: DENIES: Tinnitus, Hearing loss, Vertigo, Nasal discharge, Oral lesions, Throat pain, Hoarseness, Ear Pain, Running Nose, Epistaxis, Sinus Pain, Toothache, Odynophagia Respiratory: DENIES: Apneas, Cough, Snoring, Wheezing, Hemoptysis, Sputum production, Shortness of breath Cardiovascular: DENIES: Chest pain, Palpitations, Syncope, Dyspnea on Exertion , PND, Lower Extremity Edema, Orthopnea, Claudication Gastrointestinal: DENIES: Abdominal pain, Black stools, Bloody stools, Constipation, Diarrhea, Nausea, Vomiting, Difficulty Swallowing, Anorexia Genitourinary: DENIES: Abnormal vaginal bleeding, Dysmenorrhea, Dyspareunia, Sexual dysfunction, Urinary frequency, Urinary incontinence, Urgency, Hematuria , Dysuria, Nocturia, Vaginal discharge Musculoskeletal: DENIES: Joint pain, Muscle aches, Stiffness, Joint Swelling, Back pain, Neck pain Integumentary: DENIES: Abnormal pigmentation, Pruritus, Rash, Nail changes, Breast masses, Breast skin changes, Nipple discharge Hematologic/lymphatic: DENIES: Bruising, Lymphadenopathy Immunologic/allergic: DENIES: Eczema, Urticaria Neurologic: DENIES: Abnormal gait, Headache, Localized weakness, Paresthesias, Seizures, Speech Problems, Tremor, Poor Balance Psychiatric: DENIES: Anxiety, Confusion, Mood changes, Depression, Hallucinations, Agitation, Suicidal Ideation, Homicidal Ideation, Delusions Except as stated in HPI: all other systems reviewed are Neg Past Family Social History Past Medical History History of stroke SVT Seizure disorder Chronic Coumadin therapy Past Surgical History Appendectomy Reported Medications Reviewed in the EMR Allergies: Coded Allergies: *MDRO Multi-Drug Resistant Organism (Verified Allergy, Unknown, 05/28/17) +c-dif Active Ordered Medications Reviewed in the EMR Family History Mother had Alzheimer's, father from a stroke Social History No current tobacco alcohol dependency, lives with her family Physical Exam Vital Signs Vital Signs Date Time Temp Pulse Resp B/P (MAP) Pulse Ox O2 Delivery O2 Flow Rate FiO2 05/28/17 15:26 82 16 146/74 (98) 96 Nasal Cannula 2.00 05/28/17 14:05 79 18 94 05/28/17 13:35 98.8 78 18 141/63 (89) 94 Physical Exam GENERAL: This is a well-nourished, well-developed patient, complaining of right sided chest pain SKIN: No rashes, ecchymoses or lesions. Cool and dry. HEAD: Atraumatic. Normocephalic. No temporal or scalp tenderness. EYES: Pupils equal round and reactive. Extraocular motions intact. No scleral icterus. No injection or drainage. ENT: Nose without bleeding, purulent drainage or septal hematoma. Throat without erythema, tonsillar hypertrophy or exudate. Uvula midline. Airway patent. NECK: Trachea midline. No JVD or lymphadenopathy. Supple, nontender, no meningeal signs. CARDIOVASCULAR: Regular rate and rhythm without murmurs, gallops, or rubs. RESPIRATORY: Clear to auscultation. Breath sounds equal bilaterally. No wheezes , rales, or rhonchi. GASTROINTESTINAL: Abdomen soft, non-tender, nondistended. No hepato-splenomegaly , or palpable masses. No guarding. MUSCULOSKELETAL: Extremities without clubbing, cyanosis, or edema. No joint tenderness, effusion, or edema noted. No calf tenderness. Negative Homans sign bilaterally. NEUROLOGICAL: Awake and alert. Cranial nerves II through XII intact. Motor and sensory grossly within normal limits. Five out of 5 muscle strength in all muscle groups. Normal speech. Laboratory Laboratory Tests Test 05/28/17 14:10 White Blood Count 8.2 Red Blood Count 4.45 Hemoglobin 13.2 Hematocrit 40.7 Mean Corpuscular Volume 91.5 Mean Corpuscular Hemoglobin 29.7 Mean Corpuscular Hemoglobin Concent 32.5 Red Cell Distribution Width 12.5 Platelet Count 215 Mean Platelet Volume 8.1 Neutrophils (%) (Auto) 73.5 Lymphocytes (%) (Auto) 11.0 Monocytes (%) (Auto) 8.9 Eosinophils (%) (Auto) 5.8 Basophils (%) (Auto) 0.8 Neutrophils # (Auto) 6.0 Lymphocytes # (Auto) 0.9 Monocytes # (Auto) 0.7 Eosinophils # (Auto) 0.5 Basophils # (Auto) 0.1 CBC Comment DIFF FINAL Differential Comment Prothrombin Time 26.7 Prothromb Time International Ratio 2.6 Blood Urea Nitrogen 21 Creatinine 0.83 Random Glucose 129 Calcium Level 9.1 Sodium Level 141 Potassium Level 4.0 Chloride Level 105 Carbon Dioxide Level 29.9 Anion Gap 6 Estimat Glomerular Filtration Rate 66 Result Diagram: 05/28/17 1410 05/28/17 1410 Imaging Last Impressions Chest CT 05/28/17 0000 Signed Impressions: Service Date/Time: Sunday, May 28, 2017 13:50 - CONCLUSION: Small right pneumothorax or right pleural effusion. Juan Alberto Garcia MD FACR Abdomen/Pelvis CT 05/28/17 0000 Signed Impressions: Service Date/Time: Sunday, May 28, 2017 13:50 - CONCLUSION: 1. Small right pneumothorax 2. Significant distention of the colon, etiology not apparent. There is no free air. Moderate vascular catheter changes are noted. 3. Hemangioma L1 and L3. 4. Trace free fluid in the pelvis. Juan Alberto Garcia MD FACR Caprini VTE Risk Assessment Caprini VTE Risk Assessment: Mod/High Risk (score >= 2) Caprini Risk Assessment Model Point Value = 1 Point Value = 2 Point Value = 3 Point Value = 5 Age 41-60 Minor surgery BMI > 25 kg/m2 Swollen legs Varicose veins or History of unexplained or recurrent spontaneous Oral contraceptives or hormone replacement Sepsis (< 1 month) Serious lung disease, including pneumonia (< 1 month) Abnormal pulmonary function Acute myocardial infarction Congestive heart failure (< 1 month) History of inflammatory bowel disease Medical patient at bed rest Age 61-74 Arthroscopic surgery Major open surgery (> 45 min) Laparoscopic surgery (> 45 min) Malignancy Confined to bed (> 72 hours) Immobilizing plaster cast Central venous access Age >= 75 History of VTE Family history of VTE Factor V Leiden Prothrombin [id number] Lupus anticoagulant Anticardiolipin antibodies Elevated serum homocysteine Heparin-induced thrombocytopenia Other congenital or acquired thrombophilia Stroke (< 1 month) Elective arthroplasty Hip, pelvis, or leg fracture Acute spinal cord injury (< 1 month) Prophylaxis Regimen Total Risk Factor Score Risk Level Prophylaxis Regimen 0-1 Low Early ambulation 2 Moderate Order ONE of the following: *Sequential Compression Device (SCD) *Heparin 5000 units SQ BID 3-4 Higher Order ONE of the following medications: *Heparin 5000 units SQ TID *Enoxaparin/Lovenox 40 mg SQ daily (WT < 150 kg, CrCl > 30 mL/min) *Enoxaparin/Lovenox 30 mg SQ daily (WT < 150 kg, CrCl > 10-29 mL/min) *Enoxaparin/Lovenox 30 mg SQ BID (WT < 150 kg, CrCl > 30 mL/min) AND/OR *Sequential Compression Device (SCD) 5 or more Highest Order ONE of the following medications: *Heparin 5000 units SQ TID (Preferred with Epidurals) *Enoxaparin/Lovenox 40 mg SQ daily (WT < 150 kg, CrCl > 30 mL/min) *Enoxaparin/Lovenox 30 mg SQ daily (WT < 150 kg, CrCl > 10-29 mL/min) *Enoxaparin/Lovenox 30 mg SQ BID (WT < 150 kg, CrCl > 30 mL/min) AND *Sequential Compression Device (SCD) Assessment and Plan Problem List: (1) Blunt chest trauma ICD Code: S29.8XXA - Other specified injuries of thorax, initial encounter Status: Acute Plan: Status post fall a week ago with subsequent pneumothorax and symptoms of chest pain (2) Traumatic pneumothorax ICD Code: S27.0XXA - Traumatic pneumothorax, initial encounter Status: Acute Plan: Continue observation with x-ray in a.m. Thoracic surgery follow-up pending (3) Seizure ICD Code: R56.9 - Seizure Status: Acute Plan: Continue Dilantin and Keppra, stable Code Status DO NOT RESUSCITATE Physician Certification 2 Midnight Certification Type: Admission for Inpatient Services Order for Inpatient Services The services are ordered in accordance with Medicare regulations or non- Medicare payer requirements, as applicable. In the case of services not specified as inpatient-only, they are appropriately provided as inpatient services in accordance with the 2-midnight benchmark. Estimated LOS (days): 3 3 days is the estimated time the patient will need to remain in the hospital, assuming treatment plan goals are met and no additional complications. Post-Hospital Plan: Home Problem Qualifiers (1) Blunt chest trauma: Qualified Codes: S29.8XXA - Other specified injuries of thorax, initial encounter (2) Traumatic pneumothorax: Qualified Codes: S27.0XXA - Traumatic pneumothorax, initial encounter Opal Gandara MD May 28, 2017 16:18
[2017-05-28] MEDS: ACETAMINOPHEN 325 MG TAB PO PRN ×3 (16:33→16:35)
[2017-05-28 18:17] VITALS: BP 110/61
[2017-05-28 20:20] VITALS: BP 107/50; PULSE 66; RESP 16; TEMP 98.1; O2SAT 94
[2017-05-28] MEDS ORDERED: ATORVASTATIN 20 MG TAB PO SCH (21:00)
[2017-05-28] MEDS ORDERED: MIRTAZAPINE 15 MG TAB PO SCH (21:00)
[2017-05-28] MEDS: levETIRAcetam 500 MG TAB PO SCH (21:11)
[2017-05-28] MEDS: SODIUM CHLORIDE 0.9% FLUSH 10 ML FLUSH IV FLUSH SCH (21:12)
[2017-05-28] MEDS: PHENYTOIN SODIUM 100 MG CAP PO SCH (21:12)
[2017-05-29 00:25] VITALS: BP 117/56; PULSE 69; RESP 17; TEMP 97.7; O2SAT 95
[2017-05-29 00:35] VITALS: PULSE 65
[2017-05-29 03:53] VITALS: PULSE 56
[2017-05-29 04:15] VITALS: BP 131/61; PULSE 65; RESP 16; TEMP 97.2; O2SAT 96
[2017-05-29 08:00] VITALS: BP 128/60; PULSE 73; RESP 18; TEMP 97.9; O2SAT 94
[2017-05-29 08:02] LABS: BICARBONATE 30.4 MEQ/L (21.0-32.0); CALCIUM 8.4 MG/DL (8.5-10.1); CREATININE 0.75 MG/DL (0.50-1.00)
[2017-05-29] MEDS: levETIRAcetam 500 MG TAB PO SCH (08:32)
[2017-05-29] MEDS: PHENYTOIN SODIUM 100 MG CAP PO SCH (08:33)
[2017-05-29] MEDS: SODIUM CHLORIDE 0.9% FLUSH 10 ML FLUSH IV FLUSH SCH (08:34)
--- NOTE | 2017-05-29 08:54 | RADRPT ---
EXAM DATE/TIME: 05/29/2017 07:48 [facility] COMPARISON: CHEST SINGLE AP, July 12, 2012, 4:13. CT THORAX W/O CONTRAST, May 28, 2017, 13:50. INDICATIONS : Followup small right pneumothorax seen on chest CT. Chest pain. Fall last week. MEDICAL HISTORY : Seizures. Cerebrovascular disease. Hypertension. SURGICAL HISTORY : Appendectomy. ENCOUNTER: Subsequent ACUITY: 1 week PAIN SCORE: 0/10 LOCATION: Bilateral chest FINDINGS: PA and lateral views of the chest were obtained and demonstrate a small right apical pneumothorax ember suring up to approximately 1.6 cm in diameter. Patchy opacity remains in both lung bases with bluntin g of the right costophrenic angle. The heart size is within normal limits. Tracheal calcifications ar e present. Ribs appear intact. Multiple overlying electrocard ogram leads are present. Degenerative c hanges are noted in both glenohumeral joints. CONCLUSION: 1. Small right apical pneumothorax. 2. Hazy opacity at both lung bases with blunting of the right costophrenic angle. Arya Alexander MD on May 29, 2017 at 8:50 Board Certified Radiologist. This report was verified electronically.
[2017-05-29] MEDS ORDERED: HYDROCHLOROTHIAZIDE 25 MG TAB PO SCH (09:00)
[2017-05-29] MEDS ORDERED: LISINOPRIL 10 MG TAB PO SCH (09:00)
[2017-05-29] MEDS ORDERED: AMIODARONE 200 MG TAB PO SCH (09:00)
[2017-05-29] MEDS ORDERED: ESCITALOPRAM OXALATE 20 MG TAB PO SCH (09:00)
[2017-05-29] MEDS ORDERED: NON-FORMULARY DRUG (Lisinopril-Hctz 0.5 TAB) PO SCH (09:00)
--- NOTE | 2017-05-29 09:44 | PD.CONS ---
History of Present Illness Service CT Surgery Consult Requested By Dr. Gandara Reason for Consult Right pneumothorax Primary Care Physician Andrea Syed MD Diagnoses: (1) Traumatic pneumothorax History of Present Illness 82 y/o female presents with small right pneumothorax s/p fall last Wednesday. She presented to the [facility] and was transferred here for observation. She has no complaints this morning. Review of Systems Constitutional: DENIES: Diaphoretic episodes, Fatigue, Fever, Weight gain, Weight loss, Chills, Dizziness, Change in appetite, Night Sweats Endocrine: DENIES: Abnorml menstrual pattern, Heat/cold intolerance, Polydipsia , Polyuria, Polyphagia Eyes: DENIES: Blurred vision, Diplopia, Eye inflammation, Eye pain, Vision loss , Photosensitivity, Double Vision Ears, nose, mouth, throat: DENIES: Tinnitus, Hearing loss, Vertigo, Nasal discharge, Oral lesions, Throat pain, Hoarseness, Ear Pain, Running Nose, Epistaxis, Sinus Pain, Toothache, Odynophagia Respiratory: DENIES: Apneas, Cough, Snoring, Wheezing, Hemoptysis, Sputum production, Shortness of breath Cardiovascular: DENIES: Chest pain, Palpitations, Syncope, Dyspnea on Exertion , PND, Lower Extremity Edema, Orthopnea, Claudication Gastrointestinal: DENIES: Abdominal pain, Black stools, Bloody stools, Constipation, Diarrhea, Nausea, Vomiting, Difficulty Swallowing, Anorexia Genitourinary: DENIES: Abnormal vaginal bleeding, Dysmenorrhea, Dyspareunia, Sexual dysfunction, Urinary frequency, Urinary incontinence, Urgency, Hematuria , Dysuria, Nocturia, Vaginal discharge Musculoskeletal: COMPLAINS OF: Muscle aches, Stiffness, DENIES: Joint pain, Joint Swelling, Back pain, Neck pain Integumentary: DENIES: Abnormal pigmentation, Pruritus, Rash, Nail changes, Breast masses, Breast skin changes, Nipple discharge Hematologic/lymphatic: DENIES: Bruising, Lymphadenopathy Immunologic/allergic: DENIES: Eczema, Urticaria Neurologic: DENIES: Abnormal gait, Headache, Localized weakness, Paresthesias, Seizures, Speech Problems, Tremor, Poor Balance Psychiatric: DENIES: Anxiety, Confusion, Mood changes, Depression, Hallucinations, Agitation, Suicidal Ideation, Homicidal Ideation, Delusions Past Family Social History Allergies: Coded Allergies: *MDRO Multi-Drug Resistant Organism (Verified Allergy, Unknown, 05/28/17) +c-dif Past Medical History History of stroke SVT Seizure disorder Chronic Coumadin therapy Past Surgical History Appendectomy Family History Mother had Alzheimer's, father from a stroke Social History No current tobacco alcohol dependency, lives with her family Active Ordered Medications Current Medications Medications (Trade) Dose Ordered Sig/Edwin Route Start Time Stop Time Status Last Admin (NS Flush) 2 ml UNSCH PRN IV FLUSH 05/28/17 15:30 (NS Flush) 2 ml BID IV FLUSH 05/28/17 21:00 05/29/17 08:34 (Tylenol) 650 mg Q4H PRN PO 05/28/17 15:30 05/28/17 16:35 (Narcan Inj) 0.4 mg UNSCH PRN IV PUSH 05/28/17 15:30 (Senokot) 17.2 mg Q12H PRN PO 05/28/17 15:30 (Xanax) 0.5 mg Q4H PRN PO 05/28/17 16:15 (Cordarone) 100 mg DAILY PO 05/29/17 09:00 05/29/17 08:33 (Lipitor) 20 mg HS PO 05/28/17 21:00 05/28/17 21:11 (Lexapro) 20 mg DAILY PO 05/29/17 09:00 05/29/17 08:32 (Keppra) 500 mg BID PO 05/28/17 21:00 05/29/17 08:32 (Remeron) 15 mg HS PO 05/28/17 21:00 05/28/17 21:12 (Dilantin) 100 mg BID PO 05/28/17 21:00 05/29/17 08:33 (Prinivil) 5 mg DAILY PO 05/29/17 09:00 05/29/17 08:32 (Hydrodiuril) 6.25 mg DAILY PO 05/29/17 09:00 05/29/17 08:32 Physical Exam Vital Signs Vital Signs Date Time Temp Pulse Resp B/P (MAP) Pulse Ox O2 Delivery O2 Flow Rate FiO2 05/29/17 08:00 97.9 73 18 128/60 (82) 94 05/29/17 04:15 97.2 65 16 131/61 (84) 96 05/29/17 03:53 56 05/29/17 00:35 65 05/29/17 00:25 97.7 69 17 117/56 (76) 95 05/28/17 20:20 98.1 66 16 107/50 (69) 94 05/28/17 18:17 68 16 110/61 (77) 96 2.00 05/28/17 15:26 82 16 146/74 (98) 96 Nasal Cannula 2.00 05/28/17 14:05 79 18 94 05/28/17 13:35 98.8 78 18 141/63 (89) 94 Physical Exam GENERAL: This is a elderly patient, in no apparent distress. SKIN: No rashes, ecchymoses or lesions. Cool and dry. HEAD: Atraumatic. Normocephalic. No temporal or scalp tenderness. EYES: Pupils equal round and reactive. Extraocular motions intact. No scleral icterus. No injection or drainage. ENT: Nose without bleeding, purulent drainage or septal hematoma. Throat without erythema, tonsillar hypertrophy or exudate. Uvula midline. Airway patent. NECK: Trachea midline. No JVD or lymphadenopathy. Supple, nontender, no meningeal signs. CARDIOVASCULAR: Regular rate and rhythm without murmurs, gallops, or rubs. RESPIRATORY: Clear to auscultation. Breath sounds equal bilaterally. No wheezes , rales, or rhonchi. GASTROINTESTINAL: Abdomen soft, non-tender, nondistended. No hepato-splenomegaly , or palpable masses. No guarding. MUSCULOSKELETAL: Extremities without clubbing, cyanosis, or edema. No joint tenderness, effusion, or edema noted. No calf tenderness. Negative Homans sign bilaterally. NEUROLOGICAL: Awake and alert. Cranial nerves II through XII intact. Motor and sensory grossly within normal limits. Five out of 5 muscle strength in all muscle groups. Normal speech. Laboratory Laboratory Tests Test 05/28/17 14:10 05/29/17 06:09 White Blood Count 8.2 Red Blood Count 4.45 Hemoglobin 13.2 Hematocrit 40.7 Mean Corpuscular Volume 91.5 Mean Corpuscular Hemoglobin 29.7 Mean Corpuscular Hemoglobin Concent 32.5 Red Cell Distribution Width 12.5 Platelet Count 215 Mean Platelet Volume 8.1 Neutrophils (%) (Auto) 73.5 Lymphocytes (%) (Auto) 11.0 Monocytes (%) (Auto) 8.9 Eosinophils (%) (Auto) 5.8 Basophils (%) (Auto) 0.8 Neutrophils # (Auto) 6.0 Lymphocytes # (Auto) 0.9 Monocytes # (Auto) 0.7 Eosinophils # (Auto) 0.5 Basophils # (Auto) 0.1 CBC Comment DIFF FINAL Differential Comment Prothrombin Time 26.7 Prothromb Time International Ratio 2.6 Blood Urea Nitrogen 21 20 Creatinine 0.83 0.75 Random Glucose 129 79 Calcium Level 9.1 8.4 Sodium Level 141 144 Potassium Level 4.0 4.3 Chloride Level 105 107 Carbon Dioxide Level 29.9 30.4 Anion Gap 6 7 Estimat Glomerular Filtration Rate 66 74 Phenytoin (Dilantin) Level 12.6 Result Diagram: 05/28/17 1410 05/29/17 0609 Imaging Last Impressions Chest X-Ray 05/29/17 0600 Signed Impressions: Service Date/Time: Monday, May 29, 2017 07:48 - CONCLUSION: 1. Small right apical pneumothorax. 2. Hazy opacity at both lung bases with blunting of the right costophrenic angle. Arya Alexander MD Chest CT 05/28/17 0000 Signed Impressions: Service Date/Time: Sunday, May 28, 2017 13:50 - CONCLUSION: Small right pneumothorax or right pleural effusion. Juan Alberto Garcia MD FACR Abdomen/Pelvis CT 05/28/17 0000 Signed Impressions: Service Date/Time: Sunday, May 28, 2017 13:50 - CONCLUSION: 1. Small right pneumothorax 2. Significant distention of the colon, etiology not apparent. There is no free air. Moderate vascular catheter changes are noted. 3. Hemangioma L1 and L3. 4. Trace free fluid in the pelvis. Juan Alberto Garcia MD FACR Assessment and Plan Problem List: (1) Traumatic pneumothorax ICD Codes: S27.0XXA - Traumatic pneumothorax, initial encounter Status: Acute Assessment and Plan 82y/o female s/p fall with stable small right apical pneumothorax. She is asymptomatic and this should resolve without surgical intervention. Recommend a CXR in a week as an outpatient. She should return to the ED if she develops chest pain or dyspnea. Discussed Condition With patient Problem Qualifiers (1) Traumatic pneumothorax: Qualified Codes: S27.0XXA - Traumatic pneumothorax, initial encounter Carli Francis MD May 29, 2017 09:44
--- NOTE | 2017-05-29 10:38 | HHI.PR ---
Subjective Remarks Follow-up for right apical pneumothorax. Patient is currently doing well. On room air. Denies any chest pain, shortness of breath, fever or chills. Cardiothoracic surgery evaluated her and recommended discharge home with one- week follow-up chest x-ray. Objective Vitals Vital Signs Date Time Temp Pulse Resp B/P (MAP) Pulse Ox O2 Delivery O2 Flow Rate FiO2 05/29/17 08:00 97.9 73 18 128/60 (82) 94 05/29/17 04:15 97.2 65 16 131/61 (84) 96 05/29/17 03:53 56 05/29/17 00:35 65 05/29/17 00:25 97.7 69 17 117/56 (76) 95 05/28/17 20:20 98.1 66 16 107/50 (69) 94 05/28/17 18:17 68 16 110/61 (77) 96 2.00 05/28/17 15:26 82 16 146/74 (98) 96 Nasal Cannula 2.00 05/28/17 14:05 79 18 94 05/28/17 13:35 98.8 78 18 141/63 (89) 94 I/O 05/28/17 05/28/17 05/28/17 05/29/17 05/29/17 05/29/17 07:00 15:00 23:00 07:00 15:00 23:00 Intake Total 500 ml 360 ml Balance 500 ml 360 ml Intake Oral 360 ml IV Total 500 ml # Voids 1 # Bowel Movements 0 Result Diagram: 05/28/17 1410 05/29/17 0609 Imaging Last Impressions Chest X-Ray 05/29/17 0600 Signed Impressions: Service Date/Time: Monday, May 29, 2017 07:48 - CONCLUSION: 1. Small right apical pneumothorax. 2. Hazy opacity at both lung bases with blunting of the right costophrenic angle. Arya Alexander MD Chest CT 05/28/17 0000 Signed Impressions: Service Date/Time: Sunday, May 28, 2017 13:50 - CONCLUSION: Small right pneumothorax or right pleural effusion. Juan Alberto Garcia MD FACR Abdomen/Pelvis CT 05/28/17 0000 Signed Impressions: Service Date/Time: Sunday, May 28, 2017 13:50 - CONCLUSION: 1. Small right pneumothorax 2. Significant distention of the colon, etiology not apparent. There is no free air. Moderate vascular catheter changes are noted. 3. Hemangioma L1 and L3. 4. Trace free fluid in the pelvis. Juan Alberto Garcia MD FACR Objective Remarks GENERAL: Alert, oriented 3, NAD. SKIN: Warm and dry. HEAD: Normocephalic. EYES: No scleral icterus. No injection or drainage. NECK: Supple, trachea midline. No JVD or lymphadenopathy. CARDIOVASCULAR: Regular rate and rhythm without murmurs, gallops, or rubs. RESPIRATORY: Breath sounds equal bilaterally. No accessory muscle use. GASTROINTESTINAL: Abdomen soft, non-tender, nondistended. MUSCULOSKELETAL: No cyanosis, or edema. BACK: Nontender without obvious deformity. No CVA tenderness. Procedures None A/P Problem List: (1) Blunt chest trauma ICD Code: S29.8XXA - Other specified injuries of thorax, initial encounter Status: Acute (2) Traumatic pneumothorax ICD Code: S27.0XXA - Traumatic pneumothorax, initial encounter Status: Acute (3) Seizure ICD Code: R56.9 - Seizure Status: Acute Assessment and Plan Blunt chest trauma Right-sided small apical pneumothorax Status post fall a week ago. Cardiothoracic surgery evaluated patient and cleared for discharge home with follow-up chest x-ray in 1 week. Patient is not using any pain medications and currently on room air. Discharge patient to home Condition on discharge: Improved Regular Diet as tolerated Ad Leyla activity Rx written: Continue home medications. Follow-up with primary care physician within 1 week. Chest x-ray in 1 week. Problem Qualifiers (1) Blunt chest trauma: Qualified Codes: S29.8XXA - Other specified injuries of thorax, initial encounter (2) Traumatic pneumothorax: Qualified Codes: S27.0XXA - Traumatic pneumothorax, initial encounter Lima Wood DO May 29, 2017 10:38 am
== END 2017-05-29 12:33 | disposition home or self-care (01) ==
LOC: PHED 13:32 → INTOOBSV 14:43 → PHEDA 14:43 → N06A 18:56
PROVIDERS: ADMIT Hospitalist; ATTEND Hospitalist
DX: S29.8XXA Other specified injuries of thorax, initial encounter (principal); S27.0XXA Traumatic pneumothorax, initial encounter; R06.03 Acute respiratory distress; I10 Essential (primary) hypertension; E78.00 Pure hypercholesterolemia, unspecified; G40.909 Epilepsy, unspecified, not intractable, without status epilepticus; K63.89 Other specified diseases of intestine; D18.09 Hemangioma of other sites; F41.9 Anxiety disorder, unspecified; F32.9 Major depressive disorder, single episode, unspecified; Z79.899 Other long term (current) drug therapy; Z86.73 Personal history of transient ischemic attack (TIA), and cerebral infarction without residual deficits; Z79.01 Long term (current) use of anticoagulants; W19.XXXA Unspecified fall, initial encounter
CPT/HCPCS: 71046; 71250; 74176; 80048; 80185; 85025; 85610; 96360; 99291; G0378; J2270; J2405; J7040